=== PATIENT | female | born 1975 | race Caucasian/White ===

== ENCOUNTER 2017-11-30 10:22 | Inpatient (IN) | payer SELFPAY ==
[~2017-11-30] VITALS: Ht 172.7 cm; Wt 77.0 kg
[2017-11-30 10:24] VITALS: BP 126/71; PULSE 92; RESP 13; TEMP 99; O2SAT 98
[2017-11-30] MEDS ORDERED: SODIUM CHLORIDE 0.9% FLUSH 10 ML FLUSH IVF PRN (10:45)
[2017-11-30] MEDS ORDERED: METO25TA3 PO (10:46)
[2017-11-30 10:47] VITALS: BP 122/73; PULSE 96; RESP 16; O2SAT 98
--- NOTE | 2017-11-30 10:58 | PD ---
HPI Chief Complaint: Edema Time Seen by Provider: 10:45 Travel History International Travel<30 days: No Contact w/Intl Traveler<30days: No Traveled to known affect area: No History of Present Illness HPI 42-year-old female patient with history of CHF according to her without which she states was not never formally diagnosed, presents to the ER today because she states that she has been having palpitations, chest discomfort, shortness of breath which she has been having, states that she never followed up to evaluate for CHF it is not name therapy. She states that the thing that brought her in today as that she has had a boil on her inner thigh that has been going on several days it had drained some fluid. She states that she had been seen for [employer] issues before recently it had recently been on doxycycline. She denies any unusual vaginal discharge. She also states that she has been sexually active with a new partner that is not her regular partner. She denies any fevers, vomiting, or other issues. She states she does not have a regular doctor wants to get everything checked out. Modifying Factors: None Associated Signs & Symptoms: Palpitations, chest discomfort, shortness of breath , boil in the thigh Risk Factors: Stated CHF history although never formally evaluated. PFSH Past Medical History Bipolar Disorder: Yes Cardiovascular Problems: Yes Congestive Heart Failure: Yes (FAMILY HISTORY) Hypertension: Yes Kidney Stones: Yes Medical other: Yes (HPV, ADRENAL GLAND) Migraines: Yes Tetanus Vaccination: < 5 Years Influenza Vaccination: No ?: Not LMP: LAST WEEK Dilation and Curettage (D&C): Yes Past Surgical History Other Surgery: Yes (MYECTOMY, DERMABRASION) Social History Alcohol Use: No Tobacco Use: No Substance Use: No Allergies-Medications (Allergen,Severity, Reaction): Coded Allergies: No Known Allergies (Unverified , 11/30/17) Reported Meds & Prescriptions Reported Meds & Active Scripts Active Reported Metoprolol Tartrate 25 Mg Tab 25 Mg PO BID Review of Systems Except as stated in HPI: all other systems reviewed are Neg Physical Exam Narrative GENERAL: Well-developed middle-aged female patient currently in no acute distress. Awake an oriented 3. SKIN: Focused skin assessment warm/dry. There is not a right upper inner thigh 3 cm area lesion draining whitish pus. No underlying fluctuance. HEAD: Atraumatic. Normocephalic. EYES: Pupils equal and round. No scleral icterus. No injection or drainage. ENT: No nasal bleeding or discharge. Mucous membranes pink and moist. NECK: Trachea midline. No JVD. Supple. CARDIOVASCULAR: Regular rate and rhythm. No murmur appreciated. RESPIRATORY: No accessory muscle use. Clear to auscultation. Breath sounds equal bilaterally. GASTROINTESTINAL: Abdomen soft, non-tender, nondistended. Hepatic and splenic margins not palpable. GENITOURINARY: Normal external genitalia without lesions or erythema. Vaginal vault without blood or drainage. Cervical os was closed without drainage. No cervical motion tenderness. Uterus nontender. Bilateral adnexa nontender without masses. MUSCULOSKELETAL: No obvious deformities. No clubbing. No cyanosis. No edema. NEUROLOGICAL: Awake and alert. No obvious cranial nerve deficits. Motor grossly within normal limits. Normal speech. PSYCHIATRIC: Appropriate mood and affect; insight and judgment normal. Data Data Last Documented VS Vital Signs Date Time Temp Pulse Resp B/P (MAP) Pulse Ox O2 Delivery O2 Flow Rate FiO2 11/30/17 12:20 98.0 73 19 137/90 (106) 100 Room Air Orders Orders Complete Blood Count With Diff (11/30/17 10:45) Comprehensive Metabolic Panel (11/30/17 10:45) B-Type Natriuretic Peptide (11/30/17 10:45) D-Dimer (11/30/17 10:45) Act Partial Throm Time (Ptt) (11/30/17 10:45) Prothrombin Time / Inr (Pt) (11/30/17 10:45) Ckmb (Isoenzyme) Profile (11/30/17 10:45) Troponin I (11/30/17 10:45) Iv Access Insert/Monitor (11/30/17 10:45) Ecg Monitoring (11/30/17 10:45) Oximetry (11/30/17 10:45) Oxygen Administration (11/30/17 10:45) Chest, Single Ap (11/30/17 10:45) Sodium Chloride 0.9% Flush (Ns Flush) (11/30/17 10:45) Us Leg Venous Doppler Bilat (11/30/17 10:45) Ed Urine Pregnancytest Poc (11/30/17 11:31) Gc And Chlamydia Pcr (11/30/17 11:58) Wet Prep Profile (11/30/17 11:58) Ct Pulmonary Angiogram (11/30/17 12:00) Iohexol 350 Inj (Omnipaque 350 Inj) (11/30/17 13:12) Enoxaparin Inj (Lovenox Inj) (11/30/17 13:30) Admit Order (Ed Use Only) (11/30/17 13:51) Electrocardiogram (11/30/17 ) Labs Laboratory Tests Test 11/30/17 10:50 11/30/17 12:05 White Blood Count 8.9 TH/MM3 Red Blood Count 4.56 MIL/MM3 Hemoglobin 10.4 GM/DL Hematocrit 33.7 % Mean Corpuscular Volume 73.9 FL Mean Corpuscular Hemoglobin 22.7 PG Mean Corpuscular Hemoglobin Concent 30.8 % Red Cell Distribution Width 18.0 % Platelet Count 331 TH/MM3 Mean Platelet Volume 6.8 FL Neutrophils (%) (Auto) 77.8 % Lymphocytes (%) (Auto) 12.5 % Monocytes (%) (Auto) 8.9 % Eosinophils (%) (Auto) 0.4 % Basophils (%) (Auto) 0.4 % Neutrophils # (Auto) 6.9 TH/MM3 Lymphocytes # (Auto) 1.1 TH/MM3 Monocytes # (Auto) 0.8 TH/MM3 Eosinophils # (Auto) 0.0 TH/MM3 Basophils # (Auto) 0.0 TH/MM3 CBC Comment DIFF FINAL Differential Comment Prothrombin Time 10.6 SEC Prothromb Time International Ratio 1.0 RATIO Activated Partial Thromboplast Time 23.8 SEC D-Dimer Quantitative (PE/DVT) 1.28 MG/L FEU Blood Urea Nitrogen 12 MG/DL Creatinine 0.69 MG/DL Random Glucose 93 MG/DL Total Protein 7.5 GM/DL Albumin 3.4 GM/DL Calcium Level 8.5 MG/DL Alkaline Phosphatase 115 U/L Aspartate Amino Transf (AST/SGOT) 24 U/L Alanine Aminotransferase (ALT/SGPT) 21 U/L Total Bilirubin 0.4 MG/DL Sodium Level 140 MEQ/L Potassium Level 3.8 MEQ/L Chloride Level 106 MEQ/L Carbon Dioxide Level 26.9 MEQ/L Anion Gap 7 MEQ/L Estimat Glomerular Filtration Rate 93 ML/MIN Total Creatine Kinase 79 U/L Troponin I LESS THAN 0.02 NG/ML B-Type Natriuretic Peptide 62 PG/ML Clue Cells (Wet Prep) NONE SEEN Vaginal Trichomonas (Wet Prep) NONE SEEN Vaginal Yeast (Wet Prep) NONE SEEN MDM Medical Decision Making Medical Screen Exam Complete: Yes Emergency Medical Condition: Yes Medical Record Reviewed: Yes Interpretation(s) EKG shows NSR, no ST elevation or depression, and no arrhythmias. No significant T-wave inversions. Laboratory Tests Test 11/30/17 10:50 11/30/17 12:05 Hemoglobin 10.4 GM/DL (11.6-15.3) Hematocrit 33.7 % (35.0-46.0) Mean Corpuscular Volume 73.9 FL (80.0-100.0) Mean Corpuscular Hemoglobin 22.7 PG (27.0-34.0) Mean Corpuscular Hemoglobin Concent 30.8 % (32.0-36.0) Red Cell Distribution Width 18.0 % (11.6-17.2) Mean Platelet Volume 6.8 FL (7.0-11.0) Neutrophils (%) (Auto) 77.8 % (16.0-70.0) Monocytes (%) (Auto) 8.9 % (0.0-8.0) Activated Partial Thromboplast Time 23.8 SEC (24.3-30.1) D-Dimer Quantitative (PE/DVT) 1.28 MG/L FEU (0.00-0.50) Troponin I LESS THAN 0.02 NG/ML Last [address] Angiography 11/30/17 1200 Signed Impressions: Service Date/Time: Thursday, November 30, 2017 13:07 - CONCLUSION: 1. Positive for pulmonary embolus to a subsegmental branch superior segment right lower lobe. No other definite pulmonary emboli are seen. 2. 4.4 cm right adrenal mass most characteristic of an adenoma. There is an associated small calcification. Small calculi upper pole left kidney. Jose Snyder MD Lower Extremity Ultrasound 11/30/17 1045 Signed Impressions: Service Date/Time: Thursday, November 30, 2017 11:26 - CONCLUSION: No evidence of DVT. Henry Dudley MD Chest X-Ray 11/30/17 1045 Signed Impressions: Service Date/Time: Thursday, November 30, 2017 11:02 - CONCLUSION: 1. No acute cardiopulmonary disease. Isaac Rhodes MD Differential Diagnosis Chest discomfort, palpitations, groin area lesion: Abscess versus cellulitis versus CHF versus anxiety versus metabolic issues Narrative Course EKG did not show significant dysrhythmias or ST elevations or depressions. Chest x-ray did not show any signs of acute processes. Lab work shows a fairly elevated d-dimer. Her evaluation of the thigh abscess shows that the abscess is already self draining without underlying fluctuance. CTA was performed and shows a right sided pulmonary embolism. Ultrasound did not show DVTs. Lovenox was given in the ER and my plan would be to admit the patient for further treatment. Case was discussed with family practice resident service for admission. Diagnosis Primary Impression: Pulmonary embolism Additional Impression: Abscess of thigh Admitting Information Admitting Physician Requests: Admit Audrey Myers MD Nov 30, 2017 10:58
[2017-11-30 11:12] LABS: AUTOMATED NEUTROPHIL # 6.9 TH/MM3 (1.8-7.7); BASOPHIL % 0.4 % (0.0-2.0); EOSINOPHIL % 0.4 % (0.0-4.0); HEMATOCRIT 33.7 % (35.0-46.0); HEMOGLOBIN 10.4 GM/DL (11.6-15.3); LYMPH % 12.5 % (9.0-44.0); LYMPHOCYTE # 1.1 TH/MM3 (1.0-4.8); MEAN CELL VOLUME 73.9 FL (80.0-100.0); MEAN CORPUSCULAR HEMOGLOBIN 22.7 PG (27.0-34.0); MEAN CORPUSCULAR HGB CONC 30.8 % (32.0-36.0); MEAN PLATELET VOLUME 6.8 FL (7.0-11.0); MONO % 8.9 % (0.0-8.0); MONOCYTE # 0.8 TH/MM3 (0-0.9); NEUT % 77.8 % (16.0-70.0); PLATELET COUNT 331 TH/MM3 (150-450); RED BLOOD COUNT 4.56 MIL/MM3 (4.00-5.30); WHITE BLOOD COUNT 8.9 TH/MM3 (4.0-11.0)
[2017-11-30 11:23] LABS: PROTHROMBIN TIME - PATIENT 10.6 SEC (9.8-11.6)
[2017-11-30 11:30] LABS: D-DIMER 1.28 MG/L FEU (0.00-0.50)
--- NOTE | 2017-11-30 11:31 | RADRPT ---
EXAM DATE/TIME: 11/30/2017 11:02 [facility] COMPARISON: No previous studies available for comparison. INDICATIONS : Short of breath. MEDICAL HISTORY : None. SURGICAL HISTORY : None. ENCOUNTER: Initial ACUITY: 1 day PAIN SCORE: 0/10 LOCATION: Bilateral chest FINDINGS: A single view of the chest demonstrates the lungs to be symmetrically aerated without evidence of mas s, infiltrate or effusion. The cardiomediastinal contours are unremarkable. Osseous structures are intact. CONCLUSION: 1. No acute cardiopulmonary disease. Isaac Rhodes MD on November 30, 2017 at 11:28 Board Certified Radiologist. This report was verified electronically.
[2017-11-30 11:39] LABS: ALBUMIN 3.4 GM/DL (3.4-5.0); ALT (GPT) 21 U/L (10-53); AST (GOT) 24 U/L (15-37); BICARBONATE 26.9 MEQ/L (21.0-32.0); BLOOD UREA NITROGEN 12 MG/DL (7-18); CALCIUM 8.5 MG/DL (8.5-10.1); CHLORIDE 106 MEQ/L (98-107); CREATININE 0.69 MG/DL (0.50-1.00); GLOMERULAR FILTRATION RATE 93 ML/MIN (>89); GLUCOSE,RANDOM 93 MG/DL (74-106); SODIUM (NA) 140 MEQ/L (136-145)
[2017-11-30 11:43] LABS: ALKALINE PHOSPHATASE 115 U/L (45-117); TOTAL BILIRUBIN ADULT 0.4 MG/DL (0.2-1.0); TOTAL PROTEIN 7.5 GM/DL (6.4-8.2); TROPONIN I LESS THAN 0.02 NG/ML (0.02-0.05)
--- NOTE | 2017-11-30 11:58 | RADRPT ---
EXAM DATE/TIME: 11/30/2017 11:26 [facility] COMPARISON: No previous studies available for comparison. INDICATIONS : Bilateral leg swelling. MEDICAL HISTORY : Hypertension. Migraine. Kidney stones. SURGICAL HISTORY : Dilation and curettage. Myectomy. Dermabrasion. ENCOUNTER: Initial ACUITY: 1 day PAIN SCORE: 0/10 LOCATION: Bilateral legs. TECHNIQUE: Venous ultrasound of the left and right leg was performed from the inguinal ligament to the proximal calf. Real-time, color Doppler and spectral tracing, compression and augmentation techniques were us ed. FINDINGS: RIGHT LEG: There is normal compressibility of the deep venous system from the inguinal region to the proximal ca lf. No echogenic clot is seen in the lumen of the common femoral, femoral, popliteal, and posterior tibial veins. There is a normal response of the venous system to proximal and distal augmentation an d respiration. LEFT LEG: There is normal compressibility of the deep venous system from the inguinal region to the proximal ca lf. No echogenic clot is seen in the lumen of the common femoral, femoral, popliteal, and posterior tibial veins. There is a normal response of the venous system to proximal and distal augmentation an d respiration. CONCLUSION: No evidence of DVT. Henry Dudley MD on November 30, 2017 at 11:54 Board Certified Radiologist. This report was verified electronically.
[2017-11-30 12:20] VITALS: BP 137/90; PULSE 73; RESP 19; TEMP 98; O2SAT 100
[2017-11-30] MEDS ORDERED: IOHEXOL 350 MG/ML 10 ML VIAL (for RAD DIAG) IVCONTRAST ONE (13:12)
--- NOTE | 2017-11-30 13:27 | RADRPT ---
EXAM DATE/TIME: 11/30/2017 13:07 [facility] COMPARISON: No previous studies available for comparison. INDICATIONS : Short of breath and chest pain x 2 weeks. IV CONTRAST: 75 cc Omnipaque 350 (iohexol) IV RADIATION DOSE: 13.81 CTDIvol (mGy) MEDICAL HISTORY : Cardiovascular disease. Hypertension. Renal calculi. SURGICAL HISTORY : None. ENCOUNTER: Initial ACUITY: 2 weeks PAIN SCALE: 4/10 LOCATION: chest TECHNIQUE: Volumetric scanning of the chest was performed using a pulmonary embolism protocol MIP images were re constructed. Using automated exposure control and adjustment of the mA and/or kV according to patien t size, radiation dose was kept as low as reasonably achievable to obtain optimal diagnostic quality images. DICOM format image data is available electronically for review and comparison. Follow-up recommendations for detected pulmonary nodules are based at a minimum on nodule size and pa tient risk factors according to Fleischner Society Guidelines. FINDINGS: Examination is positive for pulmonary embolus to a subsegmental branch superior segment right lower l obe. No other discrete pulmonary emboli are identified. No pleural pericardial effusion. Upper abdomen reveals a large 4.4 cm right adrenal mass most charact eristic of an adrenal adenoma. CONCLUSION: 1. Positive for pulmonary embolus to a subsegmental branch superior segment right lower lobe. No othe r definite pulmonary emboli are seen. 2. 4.4 cm right adrenal mass most characteristic of an adenoma. There is an associated small calcific ation. Small calculi upper pole left kidney. Jose Snyder MD on November 30, 2017 at 13:19 Board Certified Radiologist. This report was verified electronically.
[2017-11-30] MEDS ORDERED: ENOXAPARIN SODIUM 80 MG/0.8 ML SYRINGE SQ ONE (13:30)
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
[2017-11-30 15:16] VITALS: BP 141/76; PULSE 74; RESP 16; O2SAT 100
[2017-11-30] MEDS ORDERED: SODIUM CHLORIDE 0.9% FLUSH 10 ML FLUSH IV FLUSH PRN (15:45)
[2017-11-30 17:06] VITALS: BP 165/93; PULSE 84; RESP 18; O2SAT 100
[2017-11-30 18:12] LABS: AMORPHOUS SEDIMENT, URINE RARE; BILIRUBIN, URINE NEG (NEG); BLOOD, URINE NEG (NEG); GLUCOSE,URINE NEG (NEG); KETONE, URINE NEG (NEG); NITRITE,URINE NEG (NEG); PH, URINE 7.5 (5.0-8.5); SQUAMOUS EPITHELIAL CELL URINE 2 /hpf (0-5); URINE COLOR YELLOW (YELLW/STRAW); URINE LEUKOCYTE ESTERASE NEG (NEG)
[2017-11-30 19:24] VITALS: BP 119/57; PULSE 91; RESP 18; O2SAT 98
--- NOTE | 2017-11-30 21:10 | EKG ---
Date Performed: 11/30/2017 Time Performed: 17:24:44 PTAGE: 42 years EKG: Sinus rhythm MINIMAL VOLTAGE CRITERIA FOR LVH, CONSIDER NORMAL VARIANT MINIMAL ST DEPRESSION BORDERLINE ECG PREVIOUS TRACING : 11/30/2017 10.39 Since previous tracing, no significant change noted DOCTOR: Charly Machuca Interpretating Date/Time 11/30/2017 21:09:45
--- NOTE | 2017-11-30 22:03 | EKG ---
Date Performed: 11/30/2017 Time Performed: 10:39:55 PTAGE: 42 years EKG: Sinus rhythm VOLTAGE CRITERIA FOR LVH MODERATE ST DEPRESSION ABNORMAL ECG NO PREVIOUS TRACING DOCTOR: Charly Machuca Interpretating Date/Time 11/30/2017 22:02:45
[2017-11-30] MEDS: METOPROLOL TARTRATE 25 MG TAB PO SCH (22:52)
[2017-11-30] MEDS: SULFAMETHOXAZOLE-TRIMETHOPRIM DS 800-160 MG TAB PO SCH (22:52)
[2017-11-30] MEDS: SODIUM CHLORIDE 0.9% FLUSH 10 ML FLUSH IV FLUSH SCH (22:53)
[2017-12-01] VITALS (8 sets, daily range): BP systolic 122–143; BP diastolic 65–89; PULSE 67–95; RESP 18; TEMP 98–100.7; O2SAT 97–98
[2017-12-01 00:04] LABS: TROPONIN I LESS THAN 0.02 NG/ML (0.02-0.05)
[2017-12-01] MEDS ORDERED: ENOXAPARIN SODIUM 100 MG/ML SYRINGE SQ SCH ×2 (01:30→14:00)
[2017-12-01] MEDS: ACETAMINOPHEN 500 MG CPLT PO PRN ×2 (04:18→10:11)
[2017-12-01 09:17] LABS: AUTOMATED NEUTROPHIL # 7.7 TH/MM3 (1.8-7.7); BASOPHIL % 0.4 % (0.0-2.0); EOSINOPHIL % 0.4 % (0.0-4.0); HEMATOCRIT 33.3 % (35.0-46.0); LYMPH % 11.6 % (9.0-44.0); LYMPHOCYTE # 1.1 TH/MM3 (1.0-4.8); MEAN CELL VOLUME 74.4 FL (80.0-100.0); MEAN CORPUSCULAR HEMOGLOBIN 22.4 PG (27.0-34.0); MEAN CORPUSCULAR HGB CONC 30.1 % (32.0-36.0); MONO % 6.3 % (0.0-8.0); MONOCYTE # 0.6 TH/MM3 (0-0.9); NEUT % 81.3 % (16.0-70.0); PLATELET COUNT 288 TH/MM3 (150-450); RED BLOOD COUNT 4.48 MIL/MM3 (4.00-5.30); RED CELL DISTRIBUTION WIDTH 18.3 % (11.6-17.2); WHITE BLOOD COUNT 9.5 TH/MM3 (4.0-11.0)
[2017-12-01 09:21] LABS: INTERNATIONAL NORMALIZED RATIO 1.1 RATIO; PROTHROMBIN TIME - PATIENT 10.8 SEC (9.8-11.6)
[2017-12-01] MEDS: METOPROLOL TARTRATE 25 MG TAB PO SCH ×2 (10:11→21:28)
[2017-12-01] MEDS: FERROUS SULFATE 325 MG (65 MG ELEMENTAL IRON) TAB PO SCH (10:11)
[2017-12-01] MEDS: ASCORBIC ACID 500 MG TAB PO SCH (10:11)
[2017-12-01] MEDS: SODIUM CHLORIDE 0.9% FLUSH 10 ML FLUSH IV FLUSH SCH ×2 (10:12→21:00)
[2017-12-01] MEDS: SULFAMETHOXAZOLE-TRIMETHOPRIM DS 800-160 MG TAB PO SCH ×2 (11:04→21:28)
--- NOTE | 2017-12-01 14:57 | HHI.FPPN ---
Subjective Remarks Medicine attending note: Pleasant 42-year-old woman presented to the emergency room complaining of bilateral inner thigh pain secondary to "boils" that has been present recently. Apparently one had drained spontaneously, she was complaining of increasing pain in the areas. Patient describes herself as "homeless "although she has been traveling from the [facility] of the [facility]. Patient does not relate more specific details about her social life. Has had some shortness of breath and some chest pain described as being in the anterior chest. This had prompted a d-dimer which was elevated in the emergency room and a CTA of the chest revealing a pulmonary embolus in the right lower lobe. No prior history of DVTs, pulmonary emboli, or being on estrogen therapy, no family history of coagulation problems. Please see the resident history and physical for complete discussion of past medical history, family, social history and review of systems. Objective Vitals Vital Signs Date Time Temp Pulse Resp B/P (MAP) Pulse Ox O2 Delivery O2 Flow Rate FiO2 12/01/17 11:30 98.3 67 18 143/85 (104) 97 12/01/17 10:00 97 12/01/17 07:31 98.0 84 18 139/89 (106) 97 12/01/17 04:00 77 12/01/17 02:48 98.1 85 18 135/76 (95) 98 11/30/17 19:24 91 18 119/57 (77) 98 Room Air 11/30/17 17:06 84 18 165/93 (117) 100 Room Air 11/30/17 15:16 74 16 141/76 (97) 100 Room Air I/O 11/30/17 11/30/17 11/30/17 12/01/17 12/01/17 12/01/17 07:00 15:00 23:00 07:00 15:00 23:00 Intake Total 1200 ml Balance 1200 ml Intake Oral 1200 ml # Voids 3 Result Diagram: 12/01/17 0639 11/30/17 1050 Objective Remarks Vital signs noted. Afebrile. Gen. appearance: Young woman who is very pleasant conversation, makes good eye contact, has a normal affect. HEENT: Nonlocalizing. Lungs: Clear to auscultation with some diminished breath sounds at the right lateral lower side. Cardiac: S1-S2, no S3 or tachycardia, no murmurs. Abdomen: Soft, no organomegaly, no tenderness. No masses. Extremities: Feet are warm and dry, no calf tenderness. On the inner thighs proximally there is on the right 2 cm open area with granulation tissue and infection was discharge. On the left there is a more closed area 1.5-2 cm that is nontender. A/P Assessment and Plan Attending clinical assessment. Pleasant 42-year-old woman who describes herself as "homeless "admitted with right lower lobe pulmonary embolus associated with a presentation for painful inner thigh carbuncles. tax accounting manager to be consulted to assist with discharge planning. The patient will need to be on anticoagulation for 3 months plus. Patient seen and examined. Case reviewed and discussed with resident team. Agree with plan of care is discussed with me and documented in the resident note. Problem List: (1) Pulmonary embolism ICD Codes: I26.99 - Other pulmonary embolism without acute cor pulmonale Status: Acute Plan: -CTA angiography: Positive for coronary embolus at right lower lobe Patient given Lovenox 70 mg 1 in the ED Continue with Lovenox every 12hr Patient placed on telemetry -Patient with symptoms of shortness of breath and chest pain yesterday, now resolved. Follow-up serial troponin and EKG. Initial troponins negative -Patient currently asymptomatic -Elevated d-dimer, INR of 1 -Follow-up a.m. labs (2) Abscess of thigh ICD Codes: L02.419 - Cutaneous abscess of limb, unspecified Status: Acute Plan: Bilateral abscess on inner thigh with associated pain and erythema On admission patient found to have increase white cell count, afebrile, slight tachycardic at 92 -Consider wound culture -GC chlamydia negative -Consider other STD testing. -Patient placed on Bactrim -Consider I&D (3) Hypertension ICD Codes: I10 - Essential (primary) hypertension Plan: Continue with Metoprolol twice a day (4) Nutrition, metabolism, and development symptoms ICD Codes: R63.8 - Other symptoms and signs concerning food and fluid intake Plan: Fluids Electrolytes Nutrition: Regular diet Zion Tompkins MD Dec 01, 2017 14:57
[2017-12-01 15:05] LABS: HEMOGLOBIN A1C 6.1 % (4.3-6.0)
--- NOTE | 2017-12-01 18:04 | ECHRPT ---
Indication: SHORTNESS OF BREATH CONCLUSIONS Normal left ventricular size. Moderate to severethe left ventricular systolic function is normal with an estimated ejection fracti on in the range of 55-60%. Moderate concentric left ventricular hypertrophy. The right ventricle was not well visualized. The left atrial size is hqsl-kp-[id number] dilated. The right atrial size is mildly dilated. No atrial level shunt is demonstrated by color flow Doppler interrogation. Eomwp-qe-spca mitral valve regurgitation. There is trace tricuspid valve regurgitation. The estimated pulmonary arterial pressure is 33 mmHg. BP: 135 / 76 HR: Rhythm: Sinus MEASUREMENTS (Male / Female) Normal Values Technical Quality:Fair 2D ECHO LV Diastolic Diameter PLAX 4.0 cm 4.2 - 5.9 / 3.9 - 5.3 cm LV Systolic Diameter PLAX 3.1 cm IVS Diastolic Thickness 1.5 cm 0.6 - 1.0 / 0.6 - 0.9 cm LVPW Diastolic Thickness 1.5 cm 0.6 - 1.0 / 0.6 - 0.9 cm LV Relative Wall Thickness 0.7 RV Internal Dim ED PLAX 3.4 cm LVOT Diameter 2.0 cm Aortic Root Diameter 3.1 cm LA Systolic Diameter LX 3.1 cm 3.0 - 4.0 / 2.7 - 3.8 cm M-MODE AV Cusp Separation MM 2.3 cm DOPPLER AV Peak Velocity 81.6 cm/s AV Peak Gradient 2.7 mmHg AV Mean Gradient 1.0 mmHg AV Velocity Time Integral 14.8 cm LVOT Peak Velocity 81.2 cm/s LVOT Peak Gradient 2.6 mmHg LVOT Velocity Time Integral 15.3 cm AV Area Cont Eq vti 3.2 cm AV Area Cont Eq pk 3.1 cm Mitral E Point Velocity 72.6 cm/s Mitral A Point Velocity 57.8 cm/s Mitral E to A Ratio 1.3 LV E' Lateral Velocity 7.5 cm/s Mitral E to LV E' Lateral Ratio 9.7 LV E' Septal Velocity 6.4 cm/s Mitral E to LV E' Septal Ratio 11.3 TR Peak Velocity 239.0 cm/s TR Peak Gradient 22.8 mmHg Right Atrial Pressure 10.0 mmHg Pulmonary Artery Systolic Pressu 32.8 mmHg Right Ventricular Systolic Press 32.8 mmHg PV Peak Velocity 64.7 cm/s PV Peak Gradient 1.7 mmHg FINDINGS LEFT VENTRICLE Normal left ventricular size. Moderate to severethe left ventricular systolic function is normal with an estimated ejection fracti on in the range of 55-60%. Moderate concentric left ventricular hypertrophy. RIGHT VENTRICLE The right ventricle was not well visualized. LEFT ATRIUM The left atrial size is furb-cb-tzorhpwgsy dilated. RIGHT ATRIUM The right atrial size is mildly dilated. ATRIAL SEPTUM No atrial level shunt is demonstrated by color flow Doppler interrogation. AORTA The aortic root and proximal ascending aorta are normal in size on limited imaging. MITRAL VALVE Psbgf-oo-itdo mitral valve regurgitation. AORTIC VALVE Trileaflet aortic valve. No aortic valve stenosis or regurgitation. TRICUSPID VALVE There is trace tricuspid valve regurgitation. The estimated pulmonary arterial pressure is 32.8 mmHg. PULMONARY VALVE No pulmonary valve regurgitation or stenosis. VESSELS The inferior vena cava is normal in size. PERICARDIUM No pericardial effusion. Charly Machuca MD, FACC (Electronically Signed) Final Date:01 December 2017 18:03
[2017-12-02 01:28] VITALS: BP 126/72; PULSE 77; RESP 18; TEMP 98.1; O2SAT 98
[2017-12-02 04:32] VITALS: BP 153/72; PULSE 83; RESP 18; TEMP 98.2; O2SAT 96
[2017-12-02] MEDS ORDERED: ENOXAPARIN SODIUM 80 MG/0.8 ML SYRINGE SQ SCH ×2 (04:45→05:00)
[2017-12-02 07:14] LABS: HEMATOCRIT 32.6 % (35.0-46.0); MEAN CELL VOLUME 72.9 FL (80.0-100.0); MEAN CORPUSCULAR HEMOGLOBIN 22.4 PG (27.0-34.0); MEAN CORPUSCULAR HGB CONC 30.7 % (32.0-36.0); MEAN PLATELET VOLUME 6.8 FL (7.0-11.0); PLATELET COUNT 287 TH/MM3 (150-450); RED BLOOD COUNT 4.46 MIL/MM3 (4.00-5.30); RED CELL DISTRIBUTION WIDTH 17.5 % (11.6-17.2); WHITE BLOOD COUNT 12.3 TH/MM3 (4.0-11.0)
[2017-12-02 08:04] VITALS: BP 145/94; PULSE 82; RESP 18; TEMP 98.4; O2SAT 96
[2017-12-02] MEDS: FERROUS SULFATE 325 MG (65 MG ELEMENTAL IRON) TAB PO SCH (10:31)
[2017-12-02] MEDS: SODIUM CHLORIDE 0.9% FLUSH 10 ML FLUSH IV FLUSH SCH (10:31)
[2017-12-02] MEDS: ASCORBIC ACID 500 MG TAB PO SCH (10:32)
[2017-12-02] MEDS: METOPROLOL TARTRATE 25 MG TAB PO SCH (10:32)
[2017-12-02] MEDS: SULFAMETHOXAZOLE-TRIMETHOPRIM DS 800-160 MG TAB PO SCH (10:32)
[2017-12-02] MEDS: ACETAMINOPHEN 500 MG CPLT PO PRN (10:33)
--- NOTE | 2017-12-02 11:18 | HHI.FPPN ---
Subjective Remarks She has seen and examined at bedside. No acute events overnight. Patient stated she is doing well. However, felt some "shutter" breathing on and off where she has to put a little more effort to breathe in. Denies CP, N/V, abdominal pain, fever or chills. Pt with good po intake. Pt with good urine output and bowel movement. Pt reports improvement of inner thigh boils. Objective Vitals Vital Signs Date Time Temp Pulse Resp B/P (MAP) Pulse Ox O2 Delivery O2 Flow Rate FiO2 12/02/17 08:04 98.4 82 18 145/94 (111) 96 12/02/17 04:32 98.2 83 18 153/72 (99) 96 12/02/17 01:28 98.1 77 18 126/72 (90) 98 12/01/17 20:33 98.1 95 18 122/65 (84) 98 12/01/17 19:49 21 12/01/17 17:27 82 12/01/17 15:16 100.7 86 18 142/65 (90) 97 12/01/17 11:30 98.3 67 18 143/85 (104) 97 I/O 12/01/17 12/01/17 12/01/17 12/02/17 12/02/17 12/02/17 07:00 15:00 23:00 07:00 15:00 23:00 Intake Total 1200 ml 200 ml Balance 1200 ml 200 ml Intake Oral 1200 ml 200 ml # Voids 3 Result Diagram: 12/02/17 0605 11/30/17 1050 Objective Remarks GENERAL: This is a well-nourished, well-developed patient, in no apparent distress. SKIN: Cool and dry. Inner thigh boils bilaterally, boil on right inner thigh measuring about 2 cm with mild pus and localized surrounding erythema, much improved from admission. Boil on left inner thigh measuring about 1 cm, improved. HEAD: Atraumatic. Normocephalic. No temporal or scalp tenderness. EYES: Pupils equal round and reactive. Extraocular motions intact. No scleral icterus. No injection or drainage. ENT: Nose without bleeding, purulent drainage or septal hematoma. Throat without erythema, tonsillar hypertrophy or exudate. Uvula midline. Airway patent. NECK: Trachea midline. No JVD or lymphadenopathy. Supple, nontender, no meningeal signs. CARDIOVASCULAR: Normal S1 and S2. Regular rate and rhythm without murmurs, gallops, or rubs. RESPIRATORY: Clear to auscultation. Breath sounds equal bilaterally. No wheezes , rales, or rhonchi. GASTROINTESTINAL: Abdomen soft, non-tender, nondistended. No hepato-splenomegaly , or palpable masses. No guarding. MUSCULOSKELETAL: Extremities without clubbing, cyanosis, or edema. No effusion, or edema noted. No calf tenderness. Negative Homans sign bilaterally. NEUROLOGICAL: Awake and alert. Cranial nerves II through XII intact. Motor and sensory grossly within normal limits. Five out of 5 muscle strength in all muscle groups. Normal speech A/P Assessment and Plan Attending clinical assessment. Pleasant 42-year-old woman who describes herself as "homeless "admitted with right lower lobe pulmonary embolus associated with a presentation for painful inner thigh carbuncles. location manager to be consulted to assist with discharge planning. The patient will need to be on anticoagulation for 3 months plus. Patient seen and examined. Case reviewed and discussed with resident team. Agree with plan of care is discussed with me and documented in the resident note. Discharge Planning Pt is homeless and coordination with CM was needed prior to discharge for arrangement of discharge medications. CM spoke to patient regarding options to obtain discharge medications. Problem List: (1) Pulmonary embolism ICD Codes: I26.99 - Other pulmonary embolism without acute cor pulmonale Status: Acute Plan: -CTA angiography: Positive for coronary embolus at right lower lobe -Elevated d-dimer, INR of 1 Patient given Lovenox 70 mg 1 in the ED Therapeutic Lovenox was continued Q12hr telemetry to be discontinued -ACS w/u negative -Patient asymptomatic, VS WNL -Patient to continue anticoagulation treatment for 3 months on xarelto (15 mg BID for 21 days and then 20mg QD taken with food for total 3 months treatment) (2) Abscess of thigh ICD Codes: L02.419 - Cutaneous abscess of limb, unspecified Status: Acute Plan: Bilateral abscess on inner thigh with associated pain and erythema, much improved on exam Pt afebrile - wound culture: positive for staph. sensitive to bactrim -STD testing: negative for RPR, HIV, GC chlamydia negative. hep C pending. Pt can come back to obtain results. -Patient placed on Bactrim -c/w bactrim 800mg Q12hr for 7days (3) Hypertension ICD Codes: I10 - Essential (primary) hypertension Plan: Continue with Metoprolol twice a day -metoprolol script renewed -lisinopril 10mg QD script given for LVH management (4) Nutrition, metabolism, and development symptoms ICD Codes: R63.8 - Other symptoms and signs concerning food and fluid intake Plan: Fluids: not indicated Electrolytes: WNL Nutrition: Regular diet Problem Qualifiers (1) Pulmonary embolism: Qualified Codes: I26.99 - Other pulmonary embolism without acute cor pulmonale Jericho Santos MD, R1 Dec 02, 2017 11:18
[2017-12-02 11:35] VITALS: BP 137/85; PULSE 78; RESP 20; TEMP 99.3; O2SAT 97
[2017-12-02] MEDS ORDERED: SULF1TAB23 PO (12:37)
[2017-12-02] MEDS ORDERED: ASCO500 PO (12:37)
[2017-12-02] MEDS ORDERED: LISI10TA3 PO (12:37)
[2017-12-02] MEDS ORDERED: METO25TA3 PO (12:37)
[2017-12-02] MEDS ORDERED: FERR325T20 PO (12:37)
[2017-12-02] MEDS ORDERED: LISINOPRIL 10 MG TAB PO ONE (12:45)
[2017-12-02] MEDS ORDERED: XARE15TA PO (14:30)
[2017-12-02] MEDS ORDERED: XARE20TA PO (14:35)
[2017-12-02] MEDS ORDERED: XARE10TA PO (15:19)
--- NOTE | 2017-12-02 15:21 | HHI.DCPOC ---
Discharge Care Plan Diagnosis: (1) Abscess of thigh (2) Pulmonary embolism (3) Hypertension Goals to Promote Your Health * To prevent worsening of your condition and complications * To maintain your health at the optimal level Directions to Meet Your Goals Take your medications as prescribed Follow your dietary instruction Follow activity as directed Keep your appointments as scheduled Take your immunizations and boosters as scheduled If your symptoms worsen call your PCP, if no PCP go to Urgent Care Center or Emergency Room Smoking is Dangerous to Your Health. Avoid second hand smoke Call the 24-hour hour crisis hotline for domestic abuse at Jericho Santos MD, R1 Dec 02, 2017 15:21
[2017-12-02 15:57] VITALS: BP 140/77; PULSE 92; RESP 19; TEMP 99.2; O2SAT 95
--- NOTE | 2017-12-02 17:13 | HHI.FPPN ---
Addendum to progress note ADDENDUM Reason for addendum: Additonal documentation Additional information I went to see patient to discuss discharge medications and review how she can obtain xarelto medication for treatment of PE. Script for xarelto along with the rest of the medication discharge scripts were given to patient. However, Pt stated she is not taking xarelto medication even after risk of no treatment were discussed. Pt refused xarelto prescription card provided by case management that would cover medication cost for 1 month. (Jericho Santos MD, R1) Reason for addendum: Additonal documentation Additional information Attending addendum: Discussed case with Dr. Santos. Reviewed that patient did leave the hospital today stating that she was not going to take treatment for the pulmonary embolus, not going to take treatment for left ventricular hypertrophy, and not going to take treatment for the carbuncles. Patient was offered prescriptions that would be non-cost for the first month. There were plans for her to be seen in the [facility] for at least 1 visit without charge although patient left even before those recommendations were suggested/offered. Unclear as to why the patient did not want to have therapy. She did state to the resident team that she was not sure where she was going to go. Indicated that she might be traveling out of the area. Patient will be welcome back on this Medicine Service Team she returns to the emergency room. Discharge was an appropriate plan today considering that she would not be able to stay at the hospital for 3 months for treatment of her pulmonary embolus and reasonable efforts were made to try to assist her social economic status. (Zion Tompkins MD) Jericho Santos MD, R1 Dec 02, 2017 17:13 Zion Tompkins MD Dec 02, 2017 17:43
[2017-12-03 12:52] LABS: HEPATITIS B CORE AB IGM NEGATIVE (NEGATIVE); HEPATITIS C AB IgG NEGATIVE (NEGATIVE)
== END 2017-12-02 17:53 | disposition home or self-care (01) | DRG 176 ==
LOC: NEPC 10:22 → NEDA 13:53 → NEPHCDU 21:01
PROVIDERS: ADMIT Family Medicine; ATTEND Family Medicine
DX: I26.99 Other pulmonary embolism without acute cor pulmonale (principal); L02.415 Cutaneous abscess of right lower limb; I10 Essential (primary) hypertension; L02.416 Cutaneous abscess of left lower limb; N88.8 Other specified noninflammatory disorders of cervix uteri; G43.909 Migraine, unspecified, not intractable, without status migrainosus; Z59.0 Homelessness; F31.9 Bipolar disorder, unspecified
CPT/HCPCS: 71045; 71275; 80053; 80307; 81001; 82550; 83036; 83880; 84484; 84703; 85025; 85027; 85379; 85610; 85730; 86317; 86403; 86592; 86703; 86705; 86803; 87070; 87086; 87147; 87186; 87205; 87210; 87491; 87591; 93005; 93306; 93970; 94150; G0481; J1650; Q9967